=== PATIENT | male | born 1975 | race Caucasian/White ===

== ENCOUNTER 2022-10-06 16:01 | Emergency (ER) | payer BC ==
--- NOTE | 2022-10-06 16:15 | NUR ---
NA FOR TRIAGE
--- NOTE | 2022-10-06 16:52 | NUR ---
PATIENT LEFT WITHOUT BEING SEEN BY DR. DR PENALOZA. NO FURTHER CARE PROVIDED FOR PATIENT.
== END 2022-10-06 16:15 | disposition left against medical advice (07) ==
LOC: MED 16:01
DX: Z53.21 Procedure and treatment not carried out due to patient leaving prior to being seen by health care provider (principal)